=== PATIENT | male | born 1965 | race Caucasian/White ===

== ENCOUNTER 2020-06-13 00:40 | Emergency (ER) | payer OTHER ==
[~2020-06-13] VITALS: Ht 180.3 cm; Wt 88.5 kg
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
--- NOTE | 2020-06-13 01:23 | DIREP ---
PROCEDURE:XRAY KNEE 3 VIEWS-RT COMPARISON:None. INDICATIONS:injury, initial evaluation FINDINGS: BONES:Fracture of the inferior aspect of the patella. JOINTS:Normal. SOFT TISSUES:Swelling of the infrapatellar soft tissues. OTHER:No additional findings. CONCLUSION:Fracture of the right patella. Dictated by: Joselito De La Cruz M.D. on 06/13/2020 at 01:20 AM
[2020-06-13 01:43] VITALS: BP 133/89
== END 2020-06-13 01:35 | disposition home or self-care (01) ==
LOC: ER 00:40
DX: S82.034A Nondisplaced transverse fracture of right patella, initial encounter for closed fracture (principal); W19.XXXA Unspecified fall, initial encounter; Y93.89 Activity, other specified; Y92.89 Other specified places as the place of occurrence of the external cause; Y99.8 Other external cause status
CPT/HCPCS: 29505; 99283; 73562-RT